=== PATIENT | male | born 1975 | race Two or more races ===

== ENCOUNTER 2016-06-24 23:16 | Inpatient (IN) | payer MEDICAID ==
[~2016-06-24] VITALS: Ht 188 cm; Wt 95.8 kg
[~2016-06-24 23:16] MED LIST: INSU70IN9 SUBCUT; INSUINJ37 SUBCUT; LISI2.5T47 PO; OMEP20TA69
[2016-06-24] MEDS ORDERED: SODIUM CHLORIDE 0.9% 2,000 ML IV ONE (23:39)
[2016-06-24] MEDS ORDERED: ONDANSETRON HCL 4 MG/2 ML VIAL IV ONE (23:45)
[2016-06-24] MEDS ORDERED: PANTOPRAZOLE SODIUM 40 MG/10 ML VIAL IV ONE (23:45)
[2016-06-25 00:20] LABS: Basophils # (auto) 0.1 uL; Eosinophils # (auto) 0 uL; Eosinophils % (auto) 0.2 % (0.0-7.0); Lymphocytes # (auto) 0.8 uL; Lymphocytes % (auto) 13.4 % (10.0-50.0); Mean Corpuscular Hemoglobin 29.1 pg (28.0-32.0); Mean Corpuscular Hgb Conc. 32.6 g/dL (32.0-36.0); Mean Corpuscular Volume 89.1 fL (80.0-100.0); Mean Platelet Volume 8.6 fL (7.4-10.4); Monocytes # (auto) 0.4 uL; Monocytes % (auto) 6.1 % (0.0-12.0); Neutrophils # (auto) 4.5 uL; Neutrophils % (auto) 79.3 % (37.0-80.0); Platelet Count (auto) 168 10^3/uL (140-450); Red Cell Distribution Width 12.9 % (11.6-16.0); White Blood Cell 5.8 10^3/uL (4.4-10.8)
[2016-06-25 00:46] LABS: Albumin 2.7 g/dL (3.4-5.0); Anion Gap 14 (5-15); Aspartate Aminotransferase 20 U/L (15-37); BUN/Creatinine Ratio 11.4; Blood Urea Nitrogen 24 mg/dL (7-18); Calcium 8.1 mg/dL (8.5-10.1); Carbon Dioxide 22 mmol/L (21-32); Chloride 98 mmol/L (98-107); GFR African American 46 mL/min; GFR Non-African American 38 mL/min; Glucose 367 mg/dL (74-106); Sodium 134 mmol/L (136-145)
[2016-06-25 00:51] LABS: Alkaline Phosphatase 120 U/L (45-117); Bilirubin, Total 0.3 mg/dL (0.2-1.0); Total Protein 6.9 g/dL (6.4-8.2)
[2016-06-25 01:03] LABS: Urine Bilirubin Negative (Negative); Urine Color Yellow (Yellow); Urine Hyaline Cast FEW /lpf (0 - 2); Urine Nitrite Negative (Negative); Urine RBC 9 /hpf (0 - 3); Urine Squamous Epithelial Cell FEW /hpf (<5); Urine Urobilinogen Normal (Negative); Urine pH 6.5 (5.0-8.0)
[2016-06-25 01:04] LABS: Urine Blood 2+ /uL (Negative); Urine Glucose 4+ mg/dL (Normal); Urine Ketone 1+ (Negative)
[2016-06-25] MEDS ORDERED: LABETALOL HCL 5 MG/ML 4ML SYRINGE IV ONE (02:15)
[2016-06-25] MEDS ORDERED: InsuLIN REG 1unit/0.01ml Soln (100units/ml) IV ONE ×2 (02:15→07:00)
[2016-06-25] MEDS ORDERED: ONDANSETRON HCL 4 MG/2 ML VIAL ONE (02:24)
[2016-06-25] MEDS ORDERED: ONDANSETRON HCL 4 MG/2 ML VIAL IV ONE ×2 (02:45→06:45)
[2016-06-25] MEDS ORDERED: cloNIDine HCL 0.1 MG TAB PO ONE (06:45)
[2016-06-25] MEDS ORDERED: HYDROmorphone HCL 2 MG/ML VL IV ONE (06:45)
[2016-06-25] MEDS ORDERED: SODIUM CHLORIDE 0.9% 1,000 ML IV ONE (07:00)
[2016-06-25] MEDS ORDERED: hydrALAZINE HCL 20 MG/ML VL IV ONE ×2 (08:00→12:00)
[2016-06-25] MEDS ORDERED: VANCOMYCIN PER PHARMACY 0 MG IV SCH (09:45)
[2016-06-25] MEDS ORDERED: DEXTROSE (50%) 50ML SYRG IV PRN (09:45)
[2016-06-25] MEDS ORDERED: MORPHINE SULF INJ 2 MG/ML SYRINGE 1ML IV PRN (10:00)
[2016-06-25] MEDS ORDERED: HYDROcodone-ACET 5/325MG TAB PO PRN (10:00)
[2016-06-25] MEDS ORDERED: NITROGLYCERIN 0.4 MG SL TAB SL PRN (10:00)
[2016-06-25] MEDS ORDERED: LEVOFLOXACIN 500MG 100 ML IV ONE (10:00)
[2016-06-25] MEDS ORDERED: TEMAZEPAM 15 MG CAP PO PRN (10:00)
[2016-06-25] MEDS: INSULIN 70/30 1unit/0.01ml Susp (100units/ml) SC SCH ×3 (10:36→21:33)
[2016-06-25] MEDS: InsuLIN REG 1unit/0.01ml Soln (100units/ml) SC SCH ×3 (10:36→21:34)
[2016-06-25] MEDS ORDERED: diphenhdrAMINE HCL 50 MG/1 ML VL ONE (10:37)
[2016-06-25] MEDS ORDERED: LIDOCAINE VISCOUS 2% 15ML UD ONE (10:37)
[2016-06-25] MEDS ORDERED: SODIUM CHLORIDE LOCK 10 ML ONE (10:37)
[2016-06-25] MEDS: SODIUM CHLORIDE 0.9% 1,000 ML IV SCH ×3 (10:38→20:34)
[2016-06-25] MEDS: VANCOMYCIN 1GM/250ML D5W 250 ML IV SCH ×2 (10:39→22:35)
[2016-06-25] MEDS: LISINOPRIL 5 MG TAB PO SCH (10:39)
[2016-06-25] MEDS: PANTOPRAZOLE SODIUM 40 MG/10 ML VIAL IV SCH ×2 (10:39→21:32)
[2016-06-25] MEDS: FAMOTIDINE (10MG/ML) 2ML VL IV SCH ×2 (10:39→21:32)
[2016-06-25] MEDS: MULTIPLE VITAMIN TAB PO SCH (10:39)
[2016-06-25] MEDS: ACCU-CHEK COMFORT CURVE STRIP VI SCH ×3 (10:39→21:34)
[2016-06-25] MEDS: ONDANSETRON HCL 4 MG/2 ML VIAL IV PRN ×3 (10:43→20:28)
[2016-06-25 11:17] LABS: INR 1.02 (0.9-1.15); Prothrombin Time 10.5 sec (9.37-12.3)
[2016-06-25] MEDS: MIDAZOLAM HCL 5 MG/ML-1ML VIAL ONE ×2 (11:45→11:49)
[2016-06-25] MEDS: fentaNYL CITRATE 100 MCG/2 ML VL ONE ×2 (11:45→11:49)
[2016-06-25] MEDS: Boost Glucose Control 8 Ounces PO SCH ×3 (12:00→21:34)
[2016-06-25 13:00] VITALS: BP 153/87
[2016-06-25] MEDS ORDERED: INS7030I SC (14:06)
[2016-06-25] MEDS: MORPHINE SULF INJ 2 MG/ML SYRINGE 1ML IV PRN ×3 (16:22→20:28)
[2016-06-25] MEDS: hydrALAZINE HCL 20 MG/ML VL IV PRN ×2 (16:28→22:33)
[2016-06-25 17:00] VITALS: BP 158/105
[2016-06-25] MEDS: cloNIDine HCL 0.1 MG TAB PO PRN (21:31)
[2016-06-25] MEDS: INSULIN DETEMIR(LEVEMIR) 1unit/0.01ml Soln (100units/ml) SC SCH (21:34)
[2016-06-25 22:43] VITALS: BP 176/102
[2016-06-25] MEDS: LORazepam 0.5 MG TAB PO PRN (23:26)
[2016-06-26] VITALS (8 sets, daily range): BP systolic 137–177; BP diastolic 80–108
[2016-06-26] MEDS: ONDANSETRON HCL 4 MG/2 ML VIAL IV PRN (04:23)
[2016-06-26] MEDS: MORPHINE SULF INJ 2 MG/ML SYRINGE 1ML IV PRN ×6 (04:23→23:43)
[2016-06-26] MEDS: hydrALAZINE HCL 20 MG/ML VL IV PRN ×2 (04:24→11:42)
[2016-06-26] MEDS: Boost Glucose Control 8 Ounces PO SCH ×4 (05:37→21:31)
[2016-06-26] MEDS: cloNIDine HCL 0.1 MG TAB PO PRN ×2 (06:08→21:24)
[2016-06-26] MEDS: ACCU-CHEK COMFORT CURVE STRIP VI SCH ×4 (06:13→21:31)
[2016-06-26] MEDS: InsuLIN REG 1unit/0.01ml Soln (100units/ml) SC SCH ×4 (06:14→21:43)
[2016-06-26 06:25] LABS: Basophils # (auto) 0 uL; Eosinophils # (auto) 0 uL; Hematocrit 37.9 % (41.0-53.0); Hemoglobin 12.5 g/dL (13.5-17.5); Lymphocytes % (auto) 12.6 % (10.0-50.0); Mean Corpuscular Hemoglobin 29.3 pg (28.0-32.0); Mean Corpuscular Hgb Conc. 33.1 g/dL (32.0-36.0); Mean Corpuscular Volume 88.4 fL (80.0-100.0); Mean Platelet Volume 8.4 fL (7.4-10.4); Monocytes # (auto) 0.6 uL; Monocytes % (auto) 7.3 % (0.0-12.0); Neutrophils # (auto) 6.5 uL; Neutrophils % (auto) 80.1 % (37.0-80.0); Platelet Count (auto) 165 10^3/uL (140-450); Red Cell Distribution Width 13.6 % (11.6-16.0); White Blood Cell 8.1 10^3/uL (4.4-10.8)
[2016-06-26 06:47] LABS: Albumin 2.2 g/dL (3.4-5.0); Calcium 7.9 mg/dL (8.5-10.1); Potassium 3.6 mmol/L (3.5-5.1)
[2016-06-26 06:52] LABS: BUN/Creatinine Ratio 13.3; Bilirubin, Total 0.5 mg/dL (0.2-1.0); Total Protein 6.2 g/dL (6.4-8.2)
[2016-06-26] MEDS: PROMETHAZINE HCL 25 MG/ML 1ML IV PRN ×5 (08:27→23:44)
[2016-06-26] MEDS: INSULIN 70/30 1unit/0.01ml Susp (100units/ml) SC SCH ×3 (10:00→21:35)
[2016-06-26] MEDS: FAMOTIDINE (10MG/ML) 2ML VL IV SCH ×2 (10:32→21:30)
[2016-06-26] MEDS: PANTOPRAZOLE SODIUM 40 MG/10 ML VIAL IV SCH ×2 (10:32→21:30)
[2016-06-26] MEDS: LEVOFLOXACIN 500MG 100 ML IV SCH (10:32)
[2016-06-26] MEDS: MULTIPLE VITAMIN TAB PO SCH (10:33)
[2016-06-26] MEDS: LISINOPRIL 5 MG TAB PO SCH (10:33)
[2016-06-26] MEDS: SODIUM CHLORIDE 0.9% 1,000 ML IV SCH ×2 (10:51→21:30)
[2016-06-26] MEDS: VANCOMYCIN 1GM/250ML D5W 250 ML IV SCH ×2 (11:37→22:51)
[2016-06-26] MEDS: LORazepam 0.5 MG TAB PO PRN (21:24)
[2016-06-26] MEDS: INSULIN DETEMIR(LEVEMIR) 1unit/0.01ml Soln (100units/ml) SC SCH (21:43)
[2016-06-27] MEDS: ACETAMINOPHEN 325 MG TAB PO PRN (01:52)
[2016-06-27] MEDS: SODIUM CHLORIDE 0.9% 1,000 ML IV SCH ×3 (03:12→20:11)
[2016-06-27] MEDS: PROMETHAZINE HCL 25 MG/ML 1ML IV PRN ×4 (04:45→21:54)
[2016-06-27] MEDS: MORPHINE SULF INJ 2 MG/ML SYRINGE 1ML IV PRN ×4 (04:45→21:54)
[2016-06-27 05:11] VITALS: BP 165/93
[2016-06-27] MEDS: Boost Glucose Control 8 Ounces PO SCH ×4 (05:43→22:21)
[2016-06-27] MEDS: cloNIDine HCL 0.1 MG TAB PO PRN ×3 (06:21→22:42)
[2016-06-27] MEDS: InsuLIN REG 1unit/0.01ml Soln (100units/ml) SC SCH ×4 (07:00→22:18)
[2016-06-27] MEDS: ACCU-CHEK COMFORT CURVE STRIP VI SCH ×4 (07:00→22:21)
[2016-06-27] MEDS: FAMOTIDINE (10MG/ML) 2ML VL IV SCH ×2 (08:17→21:54)
[2016-06-27] MEDS: PANTOPRAZOLE SODIUM 40 MG/10 ML VIAL IV SCH ×2 (08:17→21:53)
[2016-06-27] MEDS: LISINOPRIL 5 MG TAB PO SCH (08:18)
[2016-06-27] MEDS: MULTIPLE VITAMIN TAB PO SCH (08:44)
[2016-06-27] MEDS: LEVOFLOXACIN 500MG 100 ML IV SCH (08:44)
[2016-06-27 09:00] VITALS: BP 184/100
[2016-06-27] MEDS: INSULIN 70/30 1unit/0.01ml Susp (100units/ml) SC SCH ×3 (10:00→22:20)
[2016-06-27] MEDS: VANCOMYCIN 1GM/250ML D5W 250 ML IV SCH ×2 (11:00→22:42)
[2016-06-27 13:00] VITALS: BP 153/94
[2016-06-27 17:00] VITALS: BP 160/101
[2016-06-27 21:53] VITALS: BP 165/99
[2016-06-27] MEDS: INSULIN DETEMIR(LEVEMIR) 1unit/0.01ml Soln (100units/ml) SC SCH (22:21)
[2016-06-28] MEDS: PROMETHAZINE HCL 25 MG/ML 1ML IV PRN (02:53)
[2016-06-28] MEDS: MORPHINE SULF INJ 2 MG/ML SYRINGE 1ML IV PRN ×3 (02:53→22:35)
[2016-06-28] MEDS: SODIUM CHLORIDE 0.9% 1,000 ML IV SCH ×3 (04:31→21:11)
[2016-06-28] MEDS: cloNIDine HCL 0.1 MG TAB PO PRN ×4 (04:54→19:15)
[2016-06-28 04:57] VITALS: BP 193/100
[2016-06-28] MEDS: Boost Glucose Control 8 Ounces PO SCH ×4 (05:41→22:45)
[2016-06-28] MEDS: ACCU-CHEK COMFORT CURVE STRIP VI SCH ×4 (06:35→22:19)
[2016-06-28 06:36] LABS: BUN/Creatinine Ratio 11.1; Calcium 7.7 mg/dL (8.5-10.1); Potassium 3.6 mmol/L (3.5-5.1)
[2016-06-28] MEDS: InsuLIN REG 1unit/0.01ml Soln (100units/ml) SC SCH ×4 (06:37→22:00)
[2016-06-28 09:00] VITALS: BP 165/106
[2016-06-28] MEDS: INSULIN 70/30 1unit/0.01ml Susp (100units/ml) SC SCH ×2 (09:05→12:00)
[2016-06-28] MEDS: MULTIPLE VITAMIN TAB PO SCH (09:15)
[2016-06-28] MEDS: LISINOPRIL 5 MG TAB PO SCH ×2 (09:15→22:18)
[2016-06-28] MEDS: FAMOTIDINE (10MG/ML) 2ML VL IV SCH ×2 (09:17→22:15)
[2016-06-28] MEDS: PANTOPRAZOLE SODIUM 40 MG/10 ML VIAL IV SCH ×2 (09:17→22:15)
[2016-06-28] MEDS: LEVOFLOXACIN 500MG 100 ML IV SCH (09:18)
[2016-06-28] MEDS: hydrALAZINE HCL 20 MG/ML VL IV PRN (09:31)
[2016-06-28 13:00] VITALS: BP 149/98
[2016-06-28] MEDS ORDERED: PROMETHAZINE HCL 25 MG/ML 1ML IV PRN (16:15)
[2016-06-28 17:00] VITALS: BP 173/108
[2016-06-28] MEDS: METOCLOPRAMIDE HCL 5MG/ml INJ 2ml VIAL IV SCH (18:12)
[2016-06-28 22:00] VITALS: BP 201/108
[2016-06-28] MEDS ORDERED: INSULIN 70/30 1unit/0.01ml Susp (100units/ml) SC SCH (22:00)
[2016-06-28] MEDS: METOPROLOL TARTRATE 50 MG TAB PO SCH (22:19)
[2016-06-28] MEDS: INSULIN DETEMIR(LEVEMIR) 1unit/0.01ml Soln (100units/ml) SC SCH (22:43)
[2016-06-29] MEDS: METOCLOPRAMIDE HCL 5MG/ml INJ 2ml VIAL IV SCH ×3 (01:07→12:18)
[2016-06-29 05:30] VITALS: BP 150/88
[2016-06-29] MEDS: SODIUM CHLORIDE 0.9% 1,000 ML IV SCH (05:31)
[2016-06-29] MEDS: MORPHINE SULF INJ 2 MG/ML SYRINGE 1ML IV PRN (06:05)
[2016-06-29] MEDS: InsuLIN REG 1unit/0.01ml Soln (100units/ml) SC SCH ×2 (06:28→11:30)
[2016-06-29] MEDS: ACCU-CHEK COMFORT CURVE STRIP VI SCH ×2 (06:28→11:30)
[2016-06-29] MEDS: Boost Glucose Control 8 Ounces PO SCH ×2 (06:29→12:00)
[2016-06-29 06:30] LABS: Basophils # (auto) 0 uL; Basophils % (auto) 0.1 % (0.0-2.0); Eosinophils # (auto) 0.1 uL; Eosinophils % (auto) 1.1 % (0.0-7.0); Hematocrit 34.1 % (41.0-53.0); Hemoglobin 11.6 g/dL (13.5-17.5); Lymphocytes # (auto) 1.9 uL; Lymphocytes % (auto) 28.5 % (10.0-50.0); Mean Corpuscular Hemoglobin 29.7 pg (28.0-32.0); Mean Corpuscular Hgb Conc. 33.9 g/dL (32.0-36.0); Mean Corpuscular Volume 87.6 fL (80.0-100.0); Monocytes # (auto) 0.7 uL; Monocytes % (auto) 10.1 % (0.0-12.0); Neutrophils # (auto) 3.9 uL; Neutrophils % (auto) 60.2 % (37.0-80.0); Platelet Count (auto) 203 10^3/uL (140-450); Red Cell Distribution Width 13.7 % (11.6-16.0); SUSPECT VIEW TRANSMISSION; White Blood Cell 6.5 10^3/uL (4.4-10.8)
[2016-06-29 06:57] LABS: BUN/Creatinine Ratio 8.9; Bilirubin, Total 0.3 mg/dL (0.2-1.0); Calcium 7.5 mg/dL (8.5-10.1); Potassium 3.3 mmol/L (3.5-5.1); Total Protein 5.6 g/dL (6.4-8.2)
[2016-06-29] MEDS: hydrALAZINE HCL 20 MG/ML VL IV PRN (07:01)
[2016-06-29 08:20] VITALS: BP 165/101
[2016-06-29] MEDS: ACETAMINOPHEN 325 MG TAB PO PRN (09:21)
[2016-06-29] MEDS: LEVOFLOXACIN 500MG 100 ML IV SCH (09:22)
[2016-06-29] MEDS: INSULIN 70/30 1unit/0.01ml Susp (100units/ml) SC SCH ×2 (10:00→12:00)
[2016-06-29] MEDS ORDERED: VANCOMYCIN 1GM/250ML D5W 250 ML IV SCH (10:00)
[2016-06-29] MEDS: LISINOPRIL 5 MG TAB PO SCH (10:22)
[2016-06-29] MEDS: MULTIPLE VITAMIN TAB PO SCH (10:22)
[2016-06-29] MEDS: PANTOPRAZOLE SODIUM 40 MG/10 ML VIAL IV SCH (10:23)
[2016-06-29] MEDS: METOPROLOL TARTRATE 50 MG TAB PO SCH (10:23)
[2016-06-29] MEDS: FAMOTIDINE (10MG/ML) 2ML VL IV SCH (10:23)
[2016-06-29 12:02] VITALS: BP 161/96
[2016-06-29] MEDS: cloNIDine HCL 0.1 MG TAB PO PRN (12:27)
[2016-06-29 13:20] VITALS: BP 161/96
== END 2016-06-29 14:15 | disposition home or self-care (01) | DRG 720 ==
LOC: EDBD 23:16 → ER 23:16 → TELE 23:17 → TELE-CENTR 06-25 11:34
PROVIDERS: ADMIT Internal Medicine; ATTEND Internal Medicine
PROC: 0DB68ZX Excision of Stomach, Via Natural or Artificial Opening Endoscopic, Diagnostic (ICD-10-PCS; principal; 2016-06-25 11:40)
DX: A41.9 Sepsis, unspecified organism (principal); E43 Unspecified severe protein-calorie malnutrition; E11.21 Type 2 diabetes mellitus with diabetic nephropathy; K92.0 Hematemesis; I13.10 Hypertensive heart and chronic kidney disease without heart failure, with stage 1 through stage 4 chronic kidney disease, or unspecified chronic kidney disease; I12.9 Hypertensive chronic kidney disease with stage 1 through stage 4 chronic kidney disease, or unspecified chronic kidney disease; E11.621 Type 2 diabetes mellitus with foot ulcer; E86.0 Dehydration; N18.3 Chronic kidney disease, stage 3 (moderate); K80.20 Calculus of gallbladder without cholecystitis without obstruction; E87.1 Hypo-osmolality and hyponatremia; E83.51 Hypocalcemia; K57.90 Diverticulosis of intestine, part unspecified, without perforation or abscess without bleeding; Z89.429 Acquired absence of other toe(s), unspecified side; L97.529 Non-pressure chronic ulcer of other part of left foot with unspecified severity; E11.22 Type 2 diabetes mellitus with diabetic chronic kidney disease; E11.65 Type 2 diabetes mellitus with hyperglycemia; F12.90 Cannabis use, unspecified, uncomplicated; Z83.3 Family history of diabetes mellitus; Z88.0 Allergy status to penicillin; F19.10 Other psychoactive substance abuse, uncomplicated; F17.200 Nicotine dependence, unspecified, uncomplicated
CPT/HCPCS: 36415; 43239; 71010; 74176; 76705; 80048; 80053; 80202; 81001; 82150; 82962; 83036; 83690; 84484; 85025; 85610; 87040; 93005; 96361; 96372; 96374; 96375; 96376; C9113; G0434; J1815; J1956; J2250; J2405; J3490

== ENCOUNTER 2017-04-07 10:59 | Emergency (ER) | payer MEDICAID ==
[~2017-04-07] VITALS: Ht 185.4 cm; Wt 99.8 kg
[~2017-04-07 10:59] MED LIST changes: +INS7030I SC
[2017-04-07 12:44] VITALS: BP 175/98
== END 2017-04-07 20:41 | disposition left against medical advice (07) ==
LOC: EDBD 10:59 → ER 10:59
DX: R05 Cough (principal); R69 Illness, unspecified; Z53.21 Procedure and treatment not carried out due to patient leaving prior to being seen by health care provider